=== PATIENT | female | born 1960 | race Two or more races ===

== ENCOUNTER → 2023-12-29 | Outpatient (CLI) | payer OTHER, SELFPAY ==
[2023-12-29 11:53] LABS: Albumin, Serum 4.5 gm/dL (3.4-4.8); Anion Gap 6 (7-16); BUN/Creatinine Ratio 19 Ratio (12-20); Blood Urea Nitrogen 13 mg/dL (9-23); Calcium 9.7 mg/dL (8.3-10.6); Calcium (Corrected) 9.7 mg/dL (8.5-10.1); Carbon Dioxide 28.7 mMol/L (20.0-31.0); Chloride 105 mMol/L (98-107); Creatinine (Component) 0.7 mg/dL (0.6-1.3); Glucose 92 mg/dL (74-106); Osmolality,Calculated 279 (275-295); Phosphorous 3.7 mg/dL (2.4-5.1); Potassium 4.3 mMol/L (3.4-5.1); Sodium 140 mMol/L (136-145); eGFR > 60 See Note
== END | disposition home or self-care (01) ==
PROVIDERS: PCP Specialist; Referring Provider Specialist; Visit Provider Specialist
DX: D39.8 Neoplasm of uncertain behavior of other specified female genital organs (principal)
CPT/HCPCS: 36415; 80069

== ENCOUNTER → 2024-01-05 | Outpatient (CLI) | payer OTHER, SELFPAY ==
--- NOTE | 2024-01-05 16:11 | XR_ITS ---
Examination: Transvaginal ultrasound of the pelvis, complete Technique: Transvaginal sonographic images pelvis performed using estrella scale imaging Exam date and time: January 05, 2024 1435 hours INDICATIONS: Pelvic pain beginning one month ago, pelvic sonogram December 12, 2023 thickened endometrial stripe cervical mass 9 x 6 x 11 mm FINDINGS: Uterus 7.9 x 3.7 x 4.8 cm Uterine fundal fibroid 16 x 16 x 19 mm Fluid in the endometrial canal but no solid thickened endometrial stripe Ovaries obscured by bowel gas IMPRESSION: Uterine fundal area of fibroid degeneration 16 x 16 x 19 mm.
--- NOTE | 2024-01-05 16:20 | XR_ITS ---
Examination: Pelvic ultrasound, transabdominal, complete Technique: Transabdominal ultrasound of the pelvis performed using grayscale imaging Date and time of exam: January 05, 2024 1435 hours INDICATIONS: Pelvic pain, chronic, uterine fundal area of fibroid degeneration 16 x 16 x 19 mm, suspicious for cervical mass on pelvic sonogram December 12, 2023 FINDINGS: Uterus 9.3 x 3.7 x 5.6 cm Right lateral area of fibroid degeneration 27 x 26 mm No cervical mass depicted Ovaries obscured by bowel gas IMPRESSION: No cervical mass depicted
== END | disposition home or self-care (01) ==
LOC: SDIM 16:04
PROVIDERS: PCP Specialist; Referring Provider Specialist; Visit Provider Specialist
DX: D25.9 Leiomyoma of uterus, unspecified (principal)
CPT/HCPCS: 76830; 76856

== ENCOUNTER → 2024-07-16 | Outpatient (CLI) | payer OTHER, SELFPAY ==
--- NOTE | 2024-07-16 11:30 | XR_ITS ---
Examination: Abdomen sonogram, complete Date and time of exam: July 16, 2024 1144 hours INDICATIONS: Left upper abdominal pain beginning 3 months ago. Technique: Multiple real-time grayscale transabdominal sonographic images of the abdomen have been obtained. Findings: Absent gallbladder Normal common bile duct 0.3 cm Pancreatic head 2.7 cm Aorta not enlarged Liver 18 cm fatty infiltration smooth contour Normal hepatopedal portal venous flow Patent IVC Right kidney 11.9 cm cortex 1.3 cm Left kidney 11.4 cm cortex 1.7 cm Mild renal parenchymal scar formation Spleen 10.8 cm IMPRESSION: Normal common bile duct Hepatomegaly with fatty infiltration
== END | disposition home or self-care (01) ==
LOC: CDIM 11:22
PROVIDERS: PCP Specialist; Referring Provider Specialist; Visit Provider Specialist
DX: K76.0 Fatty (change of) liver, not elsewhere classified (principal)
CPT/HCPCS: 76700

== ENCOUNTER → 2024-09-03 | Outpatient (CLI) | payer OTHER, SELFPAY ==
[2024-09-03 14:09] LABS: COVID-19 Antigen (In-House) Negative (Negative)
== END | disposition home or self-care (01) ==
LOC: COPL 12:39
PROVIDERS: PCP Specialist; Referring Provider Specialist; Visit Provider Specialist
DX: R07.0 Pain in throat (principal)
CPT/HCPCS: 87811

== ENCOUNTER → 2024-10-19 | Outpatient (CLI) | payer OTHER, SELFPAY ==
--- NOTE | 2024-10-19 08:30 | XR_ITS ---
Examination: CT maxillofacial, without intravenous contrast. 2-D sagittal reconstructions. 3-D reconstructions. Date and time of exam:October 19, 2024, 0828 hours INDICATIONS: Sinus pressure and pain 2 years decreased hearing in the left ear 3 weeks CTDI: vol (mGy):7.55 DLP: (mGycm):106 Technique: Multiple axial images of maxillofacial region, 3.0 mm slice thickness. 2-D sagittal and coronal reconstructions. 3-D reconstructions. Low dose protocols were performed. One or more of the following dose reduction techniques were used; automated exposure control, adjustment of the mA and/or KV according to patient size, use of iterative reconstruction technique. Findings: Mild chronic frontal sinusitis Moderate ethmoid sinusitis No occlusion ostiomeatal complexes. Minimal mucosal thickening in the maxillary antra Moderate mucosal thickening in the sphenoid air cells. No retention cysts No fluid in the sinuses No nasopharyngeal mass IMPRESSION: [id number] chronic pansinusitis.
== END | disposition home or self-care (01) ==
PROVIDERS: PCP Specialist; Referring Provider Specialist; Visit Provider Specialist
DX: J32.4 Chronic pansinusitis (principal)
CPT/HCPCS: 70486

== ENCOUNTER → 2024-10-28 | Outpatient (CLI) | payer OTHER, SELFPAY ==
--- NOTE | 2024-10-28 11:45 | XR_ITS ---
Examination: Screening digital mammography, bilateral Computer aided detection 3-D breast Tomosynthesis, bilateral Date and time of exam: October 28, 2024 12:18 PM, compared to mammograms dating to January 18, 2019 Indication: Screening Technique: Nonmagnified MLO, CC views of the breasts to been obtained, reconstructed from 3-D Tomosynthesis images. R2 computer aided detection program utilized for evaluation of suspicious masses and/or abnormal calcifications. 3-D Tomosynthesis images obtained. Findings: Scattered areas of fibroglandular density. Benign calcifications. No interval suspicious masses Breast biopsy marker lower inner right breast Impression: BI-RADS category II: Benign Findings. Recommend 1 year follow-up mammogram.
== END | disposition home or self-care (01) ==
PROVIDERS: PCP Specialist; Referring Provider Specialist; Visit Provider Specialist
DX: Z12.31 Encounter for screening mammogram for malignant neoplasm of breast (principal); R92.323 Mammographic fibroglandular density, bilateral breasts; R92.1 Mammographic calcification found on diagnostic imaging of breast
CPT/HCPCS: 77063; 77067

== ENCOUNTER → 2024-12-29 | Outpatient (CLI) | payer BC, SELFPAY ==
[2024-12-29 17:43] LABS: Parathyroid Hormone Intact 109.4 pg/ml (18.5-88.0)
[2024-12-29 17:44] LABS: Alanine Aminotransferase 16 U/L (10-49); Albumin, Serum 4.6 gm/dL (3.4-4.8); Albumin/Globulin Ratio 1.8 (1.2-2.2); Alkaline Phosphatase 116 U/L (46-116); Anion Gap 9 (7-16); Aspartate Amino Transferase 19 U/L (0-34); BUN/Creatinine Ratio 21 Ratio (12-20); Bilirubin,Total 0.4 mg/dL (0.3-1.2); Blood Urea Nitrogen 19 mg/dL (9-23); Calcium 9.1 mg/dL (8.3-10.6); Calcium (Corrected) 9.1 mg/dL (8.5-10.1); Carbon Dioxide 26.9 mMol/L (20.0-31.0); Cardiac Risk Estimate 3.2 RATIO (3.7-5.6); Chloride 106 mMol/L (98-107); Cholesterol 215 mg/dL (132-200); Creatinine (Component) 0.9 mg/dL (0.6-1.3); Globulin 2.6 gm/dL (2.3-3.5); Glucose 104 mg/dL (74-106); HDL Cholesterol 68 mg/dL (40-60); INR 0.9 (0.9-1.3); LDL Cholesterol,Calculated 131 mg/dL (0-130); Osmolality,Calculated 285 (275-295); Potassium 3.8 mMol/L (3.4-5.1); Prothrombin Time 10.1 Seconds (9.0-12.2); Sodium 142 mMol/L (136-145); Total Protein 7.2 gm/dL (5.7-8.2); Triglycerides 79 mg/dL (30-150); eGFR > 60 See Note
[2024-12-29 17:54] LABS: Glucose Estimated Average 117 mg/dL (80-131); Hemoglobin A1C 5.7 % Hgb (4.8-6.0)
[2024-12-29 18:09] LABS: Basophils # (Auto) 0.1 Thou/mm3 (0.0-0.2); Basophils % (Auto) 1 % (0-2.5); Eosinophils # (Auto) 0.1 Thou/mm3 (0.0-0.5); Eosinophils % (Auto) 1 % (0-10); Hematocrit 41.4 % (36.0-46.0); Hemoglobin 14.4 g/dL (12.0-16.0); Immature Granulocytes Auto 0.03 Thou/mm3 (0.00-0.00); Lymphocytes # (Auto) 2.9 Thou/mm3 (1.0-4.8); Lymphocytes % (Auto) 29 % (10-50); Mean Corpuscular HGB Conc 34.8 g/dl (31.0-37.0); Mean Corpuscular Hemoglobin 30.2 pg (25.0-35.0); Mean Corpuscular Volume 87 fL (80-100); Monocytes # (Auto) 0.9 Thou/mm3 (0.0-0.8); Monocytes % (Auto) 9 % (0-12); Neutrophils # (Auto) 6.1 Thou/mm3 (1.8-7.7); Neutrophils % (Auto) 60 % (37-80); Nucleated Red Blood Cell # 0.00 Thou/mm3 (0.00-0.00); Nucleated Red Blood Cell % 0 /100 WBC (0); Platelet Count 327 Thou/mm3 (140-440); RDW Standard Deviation 42.8 fL (36.4-46.3); Red Blood Count 4.77 Miln/mm3 (4.00-5.20); White Blood Count 10.2 Thou/mm3 (3.6-11.0)
[2024-12-29 19:41] LABS: AFP Non-Pregnant 3.00 ng/mL (<8.10)
[2025-01-03 06:57] LABS: Vitamin D, 25-OH, D2 19 ng/mL; Vitamin D, 25-OH, D3 10 ng/mL; Vitamin D, 25-OH, Total 29 ng/mL (30-100)
== END | disposition home or self-care (01) ==
LOC: COPL 16:49
PROVIDERS: PCP Specialist; Referring Provider Internal Medicine; Visit Provider Internal Medicine
DX: K76.0 Fatty (change of) liver, not elsewhere classified (principal); E74.9 Disorder of carbohydrate metabolism, unspecified; E55.9 Vitamin D deficiency, unspecified; R16.2 Hepatomegaly with splenomegaly, not elsewhere classified
CPT/HCPCS: 36415; 80053; 80061; 82105; 82306; 83036; 83970; 85025; 85610

== ENCOUNTER → 2025-01-10 | Outpatient (CLI) | payer BC, SELFPAY ==
--- NOTE | 2025-01-10 07:15 | XR_ITS ---
Examination: Abdomen sonogram, complete Date and time of exam: January 10, 2025, 0719 hours INDICATIONS: History hepatomegaly with fatty infiltration, abdominal pain. Technique: Multiple real-time grayscale transabdominal sonographic images of the abdomen have been obtained. Findings: Absent gallbladder Common bile duct 0.7 cm no stones Pancreatic head 2.9 cm Aorta not enlarged Liver 18.5 cm fatty infiltration no focal liver lesions Normal hepatopetal portal venous flow Patent IVC Right kidney 11.8 cm renal cortex 1.3 cm Left kidney 10.2 cm renal cortex 1.7 cm Mild renal scarring, no hydronephrosis Spleen 10.2 cm IMPRESSION: Common bile duct 0.7 cm no stones Moderate hepatomegaly fatty infiltration
== END | disposition home or self-care (01) ==
LOC: CDIM 07:06
PROVIDERS: PCP Specialist; Referring Provider Internal Medicine; Visit Provider Internal Medicine
DX: K76.0 Fatty (change of) liver, not elsewhere classified (principal)
CPT/HCPCS: 76700